=== PATIENT | male | born 1940 | race Caucasian/White ===

== ENCOUNTER 2018-02-21 12:15 | Emergency (ER) | payer OTHER ==
[~2018-02-21] VITALS: Ht 175.3 cm; Wt 81.7 kg
[2018-02-21 12:17] VITALS: BP 135/91
[2018-02-21] MEDS ORDERED: FLOMAX0.4 MG PO (12:22)
[2018-02-21] MEDS ORDERED: MOBIC15 MG PO (13:07)
== END 2018-02-21 13:41 | disposition home or self-care (01) ==
LOC: ER 12:15
DX: S46.812A Strain of other muscles, fascia and tendons at shoulder and upper arm level, left arm, initial encounter (principal); I10 Essential (primary) hypertension; M16.11 Unilateral primary osteoarthritis, right hip; W00.0XXA Fall on same level due to ice and snow, initial encounter; Y92.89 Other specified places as the place of occurrence of the external cause; Y93.89 Activity, other specified; Y99.8 Other external cause status